=== PATIENT | male | born 1960 | race Caucasian/White ===

== ENCOUNTER 2024-08-11 18:46 | Emergency (ER) | payer OTHER ==
[~2024-08-11] VITALS: Ht 167.6 cm; Wt 72.6 kg
[2024-08-11] MEDS ORDERED: Ketorolac Tromethamine 15mg Vial IM ONE (20:25)
[2024-08-11] MEDS ORDERED: RX Prepack 6 Tabs Oxycodone 5mg UD ONE (20:25)
== END 2024-08-11 20:41 | disposition home or self-care (01) ==
LOC: ER 18:46
DX: S22.32XA Fracture of one rib, left side, initial encounter for closed fracture (principal); X58.XXXA Exposure to other specified factors, initial encounter
CPT/HCPCS: 71046; 99283-25; A9270; J1885